=== PATIENT | female | born 1975 | race Caucasian/White ===

== ENCOUNTER 2016-08-01 05:24 | Inpatient (IN) | payer OTHER ==
[~2016-08-01] VITALS: Ht 165.1 cm; Wt 105.0 kg
[~2016-08-01 05:24] MED LIST: Ascorbic Acid,Ester- PO; CALTRATE 6001 TABLE2 PO; COUMADIN PO; EPIPEN ADU0.3 MG/0.3 IM; Epipen Adult Autoinj IM; FEOSOL325 MG PO; LORCET 5-325 M1 EACH PO; OxyCODONE PO; OxyCONTIN PO; VITAMIN B12 PO; VITAMIN B6 PO; VITAMIN C PO; XANAX0.25 MG PO
[2016-08-01 06:12] VITALS: BP 129/82
[2016-08-01 11:27] VITALS: BP 114/52
[2016-08-01 13:30] VITALS: BP 113/64
[2016-08-01 16:10] VITALS: BP 111/59
[2016-08-01 18:55] VITALS: BP 103/64
[2016-08-01 20:29] VITALS: BP 118/65
[2016-08-02 00:08] VITALS: BP 130/82
[2016-08-02 04:15] VITALS: BP 136/73
[2016-08-02 05:31] LABS: HEMATOCRIT 27.1 % (36.0-46.0); MCV 73.6 FL (83-99)
[2016-08-02 05:53] LABS: ANION GAP 7 MEQ/L (2-14); CHLORIDE 108 MEQ/L (99-109); GFR ESTIMATE (CALCULATED) > 59 mL/min/; GLUCOSE 99 mg/dL (70-99); POTASSIUM 3.9 MEQ/L (3.7-5.4); SAMPLE HEMOLYSIS CHECK 0; SAMPLE ICTERIC CHECK 0; SAMPLE LIPEMIA CHECK 0; SODIUM 139 MEQ/L (136-147); UREA NITROGEN (BUN) 12 mg/dL (9-23)
[2016-08-02 08:00] VITALS: BP 134/73
[2016-08-02 11:58] VITALS: BP 119/72
[2016-08-02 16:06] VITALS: BP 145/72
[2016-08-02 20:59] VITALS: BP 150/71
[2016-08-03] VITALS: BP 163/76
[2016-08-03 04:04] VITALS: BP 134/74
[2016-08-03 04:42] LABS: HEMATOCRIT 26.5 % (36.0-46.0)
[2016-08-03 07:48] VITALS: BP 137/83
[2016-08-03] MEDS ORDERED: CELECOXIB200 MG PO (08:12)
[2016-08-03] MEDS ORDERED: METHOCARBAMOL500 MG PO (08:12)
[2016-08-03] MEDS ORDERED: OXYCONTIN10 MG PO (08:12)
[2016-08-03] MEDS ORDERED: OXYCODONE HCL5 MG PO (08:12)
[2016-08-03] MEDS ORDERED: XARELTO10 MG PO (08:12)
[2016-08-03 12:29] VITALS: BP 135/63
== END 2016-08-03 14:32 | disposition home or self-care (01) | DRG 497 ==
LOC: 2SOUTH 05:24 → 3WEST 11:22 → SDC 15:13 → EDSTATUS 15:13 → 2SOUTH 15:15 → 3WEST 08-03 14:32
PROVIDERS: Orthopaedic Surgery; Physician Assistant
PROC: 0QW Lower Bones, Revision (ICD-10-PCS; principal; 2016-08-01)
DX: T84.092A Other mechanical complication of internal right knee prosthesis, initial encounter (principal); M25.361 Other instability, right knee
CPT/HCPCS: 80048; 85014; 85018; 87070; 87075; 87205; C1713; J0131; J0690; J1885; J2250; J2795; J3010; J7050; J7120

== ENCOUNTER 2017-07-22 21:11 | Inpatient (IN) | payer OTHER, BC ==
[~2017-07-22] VITALS: Ht 165.1 cm; Wt 104.0 kg
[~2017-07-22 21:11] MED LIST changes: +CELECOXIB200 MG PO; +CYANOCOBALAM1000 MCG PO; +CYCLOBENZAPRINE5 MG PO; +ERGOCALCIF50000 UNIT PO; +FOSAMAX70 MG PO; +GABAPENTIN300 MG PO; +HYDROCODON-ACE1 EAC8 PO; +METHOCARBAMOL500 MG PO; +OXYCODONE HCL5 MG PO; +OXYCONTIN10 MG PO; +VITAMIN B-6100 MG PO; +VITAMIN C1000 MG PO; +XARELTO10 MG PO; +ZOFRAN ODT4 MG PO
[2017-07-23 06:13] VITALS: BP 138/81
[2017-07-23 10:52] VITALS: BP 129/74
[2017-07-23 13:00] VITALS: BP 122/67
[2017-07-23 15:53] VITALS: BP 125/58
[2017-07-23 18:00] VITALS: BP 118/59
[2017-07-23 20:08] VITALS: BP 108/64
[2017-07-24] VITALS: BP 127/62
[2017-07-24 03:55] VITALS: BP 120/54
[2017-07-24 04:33] LABS: HEMATOCRIT 28.7 % (36.0-46.0); HEMOGLOBIN 8.4 G/DL (11.9-15.5)
[2017-07-24 04:56] LABS: CHLORIDE 106 mEq/L (99-109); POTASSIUM 4.1 mEq/L (3.7-5.4); SODIUM 139 mEq/L (136-147)
[2017-07-24 04:58] LABS: GLUCOSE 113 mg/dL (70-99)
[2017-07-24 05:02] LABS: CREATININE 0.6 mg/dL (0.6-1.3); GFR ESTIMATE (CALCULATED) > 59 mL/min/
[2017-07-24 05:03] LABS: UREA NITROGEN (BUN) 15 mg/dL (9-23)
[2017-07-24 07:54] VITALS: BP 131/64
[2017-07-24] MEDS ORDERED: CELECOXIB200 MG PO (10:20)
[2017-07-24] MEDS ORDERED: ELIQUIS2.5 MG PO (10:20)
[2017-07-24 11:34] VITALS: BP 124/66
== END 2017-07-24 12:55 | DRG 468 ==
LOC: ENRESERV 21:11 → 2SOUTH 07-23 05:40 → 3WEST 07-23 10:39 → 2SOUTH 07-23 11:42 → 3WEST 07-24 12:55
PROVIDERS: Orthopaedic Surgery
DX: T84.093A Other mechanical complication of internal left knee prosthesis, initial encounter (principal); M25.362 Other instability, left knee; M17.12 Unilateral primary osteoarthritis, left knee; F41.9 Anxiety disorder, unspecified; G89.29 Other chronic pain; M80.052D Age-related osteoporosis with current pathological fracture, left femur, subsequent encounter for fracture with routine healing; E66.9 Obesity, unspecified; Z96.653 Presence of artificial knee joint, bilateral; M85.80 Other specified disorders of bone density and structure, unspecified site; Z88.5 Allergy status to narcotic agent; Z79.01 Long term (current) use of anticoagulants; Z68.38 Body mass index [BMI] 38.0-38.9, adult; Z41.1 Encounter for cosmetic surgery; Z87.891 Personal history of nicotine dependence
CPT/HCPCS: 80048; 81025; 85014; 85018; 87070; 87075; 87205; 97530 GP; C1713; C1776; J0131; J0690; J1100; J1885; J2250; J2795; J3010; J7050; J7120